=== PATIENT | male | born 1985 | race Caucasian/White ===

== ENCOUNTER 2023-03-06 13:41 | Emergency (ER) | payer MEDICAID ==
[~2023-03-06] VITALS: Ht 175.3 cm; Wt 81.0 kg
[2023-03-06 13:48] VITALS: O2SAT 98
[2023-03-06 14:30] LABS: BASOPHILS % 0.3 % (0.0-2.0); HEMATOCRIT. 41.8 % (42.0-52.0); HEMOGLOBIN. 13.9 g/dL (14.0-18.0); MEAN CORPUSCULAR HEMOGLOBIN 29.8 pg (28.0-32.0); MEAN CORPUSCULAR HGB CONC 33.3 g/dL (31.0-37.0); MEAN CORPUSCULAR VOLUME 89.5 fL (80.0-94.0); MEAN PLATELET VOLUME 9.2 fl (7.4-10.4); MONOCYTES % 7.4 % (2.0-8.0); NEUTROPHILS % 47.3 % (40.0-76.0); PLATELET 264 x1000/uL (130-400); RED BLOOD CELL COUNT 4.67 mill/uL (4.7-6.1); RED CELL DISTRIBUTION WIDTH 13.2 % (11.6-14.6); WHITE BLOOD COUNT 6.2 x1000/uL (4.5-11.0)
[2023-03-06 14:42] LABS: ALANINE AMINOTRANSFERASE 43 IU/L (10-49); ALBUMIN 4.3 g/dL (3.2-4.8); ASPARTATE AMINOTRANSFERASE 22 IU/L (<34); BILIRUBIN TOTAL 0.2 mg/dL (0.1-1.0); CALCIUM 9.3 mg/dL (8.7-10.4); CARBON DIOXIDE 25 mEq/L (21-32); CHLORIDE 105 mEq/L (98-107); CREATININE 0.6 mg/dL (0.6-1.3); GLUCOSE 96 mg/dL (70-105); POTASSIUM 3.8 mEq/L (3.5-5.1); PROTEIN TOTAL 7.7 g/dL (6.0-8.3); SODIUM 140 mEq/L (136-145); UREA NITROGEN BLOOD 15 mg/dL (9-23)
[2023-03-06 14:45] LABS: CLARITY URINE CLEAR (CLEAR); COLOR URINE YELLOW (YELLOW); GLUCOSE URINE NEGATIVE (NEGATIVE); KETONES URINE NEGATIVE (NEGATIVE); LEUKOCYTE ESTERASE URINE NEGATIVE (NEGATIVE); NITRITE URINE NEGATIVE (NEGATIVE); OCCULT BLOOD URINE NEGATIVE (NEGATIVE); PH URINE 6.5 (4.5-8.0); PROTEIN URINE NEGATIVE (NEGATIVE); SPECIFIC GRAVITY URINE 1.022 (1.005-1.030); UROBILINOGEN URINE 0.2 E.U./dL (0.2-1.0)
[2023-03-06] MEDS ORDERED: KETOROLAC 30MG/ML VIAL IM ONE (15:15)
[2023-03-06] MEDS ORDERED: KETOROLAC 30MG/ML VIAL IM NR (18:00)
[2023-03-06] MEDS ORDERED: IBUP-2029 MT (18:05)
[2023-03-06 18:09] VITALS: BP 131/85; PULSE 60; RESP 20; TEMP 98.3
== END 2023-03-06 18:13 | disposition home or self-care (01) ==
LOC: ER 15:00
DX: K57.90 Diverticulosis of intestine, part unspecified, without perforation or abscess without bleeding (principal); R10.32 Left lower quadrant pain; K42.9 Umbilical hernia without obstruction or gangrene
CPT/HCPCS: 99285; 74176; 80053; 81003; 83690; 85025; 36415; 96372; J1885